=== PATIENT | male | born 1995 | race Caucasian/White ===

== ENCOUNTER 2018-08-07 10:57 | Emergency (ER) | payer BC, SELFPAY ==
[2018-08-07 10:58] VITALS: BP 152/78; PULSE 53; RESP 16; TEMP 36.6; O2SAT 98; BMI 29.4
--- NOTE | 2018-08-07 12:13 | ED.VISSUMM ---
- ER Visit Summary Date of Service: 08/07/18 Chief Complaint: Rectal pain History of Present Illness: The patient is a 23 M past medical history. Patient states a week ago he does have some constipation he had to bear down more to have bowel movements. That is since resolved. He is now having some perirectal pain. Denies any fever or chills. No bleeding. No melena. No prior history. No prior endoscopy. No instrumentation. Physical Examination: Well-appearing young male vital signs are stable afebrile. HEENT exam unremarkable. Lungs clear to auscultation. Heart regular rhythm no murmur. Abdomen soft nontender. Remedies moves all 4. Neurovascularly intact. On rectal exam the outside of his anus appears normal. On rectal exam there is loose brown stool there is no blood in it show any mass when he bears down there is hemorrhoids on the inner surface of his anus that protrude. There is no active bleeding. There is no thrombosis. Currently it is nontender. Test Results: None Emergency Department Course and Treatment: Discharged to home. Treatment Plan: Internal hemorrhoids treated with hemorrhoid cream. Stool softener. Follow-up for endoscopy if needed. Disposition: Discharge Impression: Internal hemorrhoid This note was generated with [employer] dictation software. It may contain incorrect words, spelling, and punctuation that were not noted in review of the chart prior to signing ED Disposition - Plan for ED Patient: Referrals: [facility] Doctor,Out of [Primary Care Provider] -
--- NOTE | 2018-08-07 12:15 | ED.DEP ---
ED Disposition - Plan for ED Patient: Disposition: Home or Assisted Living Instructions: Treating Hemorrhoids: Self-Care, Hemorrhoids Referrals: Evaristo Esquivel MD [STAFF PHYSICIAN] - As Needed Additional Instructions: You have internal hemorrhoids. Stool softener. Hemorrhoidal cream such as Preparation H. Follow-up with Dr. Evaristo Esquivel if not improving or if you develop increasing pain or fever.
[2018-08-07 12:27] VITALS: BP 132/84; PULSE 60; RESP 16; O2SAT 97
== END 2018-08-07 12:30 | disposition home or self-care (01) ==
LOC: ED 12:24
PROVIDERS: Emergency Provider Emergency Medicine
DX: K64.8 Other hemorrhoids (principal)
CPT/HCPCS: 99282